=== PATIENT | female | born 1980 | race Caucasian/White ===

== ENCOUNTER 2017-10-10 19:56 | Emergency (ER) | payer MEDICAID ==
[~2017-10-10] VITALS: Ht 170.2 cm; Wt 105.0 kg
[2017-10-10] MEDS ORDERED: ONDANSETRON HCL 4MG/2ML VIAL IV STA (21:50)
[2017-10-10 21:55] LABS: CLARITY URINE CLEAR (CLEAR); COLOR URINE YELLOW (YELLOW); KETONES URINE NEGATIVE (NEGATIVE); LEUKOCYTE ESTERASE URINE NEGATIVE (NEGATIVE); NITRITE URINE NEGATIVE (NEGATIVE); OCCULT BLOOD URINE 2+ (NEGATIVE); PH URINE 6.5 (4.5-8.0); PROTEIN URINE NEGATIVE (NEGATIVE); SPECIFIC GRAVITY URINE 1.027 (1.005-1.030)
[2017-10-10] MEDS ORDERED: METHOCARBAMOL 500MG TABLET PO ONE (22:45)
[2017-10-10] MEDS ORDERED: KETOROLAC 30MG/ML VIAL IM ONE (22:45)
[2017-10-10 22:52] LABS: BASOPHILS % 0.2 % (0.0-2.0); EOSINOPHILS % 2.9 % (0.0-5.0); HEMATOCRIT. 38.7 % (36.0-48.0); HEMOGLOBIN. 12.7 g/dL (12.0-16.0); LYMPHOCYTES % 37.8 % (20.0-50.0); MEAN CORPUSCULAR HEMOGLOBIN 28.9 pg (28.0-32.0); MEAN CORPUSCULAR VOLUME 87.8 fL (81.0-99.0); MEAN PLATELET VOLUME 9.2 fl (7.4-10.4); NEUTROPHILS % 51.1 % (40.0-76.0); PLATELET 241 x1000/uL (130-400); RED BLOOD CELL COUNT 4.41 mill/uL (4.2-5.4); RED CELL DISTRIBUTION WIDTH 13.9 % (11.6-14.6)
[2017-10-10 22:57] LABS: CHLORIDE 109 mEq/L (98-107)
[2017-10-10 23:00] LABS: INR 1.1; PROTHROMBIN TIME 11.2 sec (9.4-11.6)
[2017-10-10 23:01] LABS: ETHANOL BLOOD < 10 mg/dL
[2017-10-11 00:50] VITALS: BP 129/75
== END 2017-10-11 00:58 | disposition home or self-care (01) ==
LOC: ER 20:03
DX: M54.5 Low back pain (principal); Z90.710 Acquired absence of both cervix and uterus
CPT/HCPCS: 36415; 72100; 80053; 81003; 81025; 83690; 85025; 85610; 96372; 99285; G0482; J1885

== ENCOUNTER 2017-10-13 09:16 | Emergency (ER) | payer MEDICAID ==
[~2017-10-13] VITALS: Ht 160 cm; Wt 110.2 kg
[2017-10-13] MEDS ORDERED: DEXAMETHASONE 10 MG/ML VIAL IM ONE (11:00)
[2017-10-13] MEDS ORDERED: KETOROLAC 60MG/2ML VIAL IM ONE (11:00)
[2017-10-13 11:23] VITALS: BP 120/68
== END 2017-10-13 12:04 | disposition home or self-care (01) ==
LOC: ER 09:33
DX: M54.42 Lumbago with sciatica, left side (principal); M54.41 Lumbago with sciatica, right side
CPT/HCPCS: 96372; 99284; J1100; J1885

== ENCOUNTER 2018-05-19 10:34 | Emergency (ER) | payer MEDICAID ==
[~2018-05-19] VITALS: Ht 165.1 cm; Wt 94.0 kg
[2018-05-19] MEDS ORDERED: KETOROLAC 30MG/ML VIAL IM ONE (12:45)
[2018-05-19] MEDS ORDERED: CYCLOBENZAPRINE 10MG TABLET PO ONE (12:45)
[2018-05-19 12:52] LABS: CLARITY URINE CLOUDY (CLEAR); COLOR URINE YELLOW (YELLOW); KETONES URINE NEGATIVE (NEGATIVE); LEUKOCYTE ESTERASE URINE NEGATIVE (NEGATIVE); NITRITE URINE NEGATIVE (NEGATIVE); OCCULT BLOOD URINE NEGATIVE (NEGATIVE); PH URINE 6.5 (4.5-8.0); PROTEIN URINE NEGATIVE (NEGATIVE); UROBILINOGEN URINE 0.2 E.U./dL (0.2-1.0)
[2018-05-19 13:08] VITALS: BP 101/46
== END 2018-05-19 14:32 | disposition home or self-care (01) ==
LOC: ER 10:34
DX: M54.5 Low back pain (principal); E11.9 Type 2 diabetes mellitus without complications; E03.9 Hypothyroidism, unspecified; Z98.890 Other specified postprocedural states
CPT/HCPCS: 72100; 81003; 81025; 96372; 99284; J1885

== ENCOUNTER 2019-11-11 10:38 | Emergency (ER) | payer MEDICAID ==
[~2019-11-11] VITALS: Ht 160 cm; Wt 102.0 kg
[2019-11-11] MEDS ORDERED: KETOROLAC 60MG/2ML VIAL IM ONE (11:30)
[2019-11-11 12:39] VITALS: BP 122/70
== END 2019-11-11 11:48 | disposition home or self-care (01) ==
LOC: ER 10:38
DX: U07.1 COVID-19 (principal); M54.9 Dorsalgia, unspecified; B34.9 Viral infection, unspecified; M54.16 Radiculopathy, lumbar region
CPT/HCPCS: 87635; 96372; 99283; C9803; J1885

== ENCOUNTER 2020-07-23 09:44 | Emergency (ER) | payer MEDICAID ==
[~2020-07-23] VITALS: Ht 165.1 cm; Wt 109.0 kg
[2020-07-23] MEDS ORDERED: KETOROLAC 30MG/ML VIAL IM ONE (10:15)
[2020-07-23 10:56] LABS: CHLORIDE 106 mEq/L (98-107)
[2020-07-23 10:59] LABS: CLARITY URINE CLEAR (CLEAR); COLOR URINE YELLOW (YELLOW); KETONES URINE NEGATIVE (NEGATIVE); LEUKOCYTE ESTERASE URINE NEGATIVE (NEGATIVE); NITRITE URINE NEGATIVE (NEGATIVE); OCCULT BLOOD URINE NEGATIVE (NEGATIVE); PROTEIN URINE NEGATIVE (NEGATIVE); SPECIFIC GRAVITY URINE 1.015 (1.005-1.030); UROBILINOGEN URINE 0.2 E.U./dL (0.2-1.0)
[2020-07-23] MEDS ORDERED: NAPR-420 MT (11:31)
[2020-07-23 11:43] VITALS: BP 119/68
== END 2020-07-23 11:44 | disposition home or self-care (01) ==
LOC: ER 10:00
DX: M54.5 Low back pain (principal); R10.9 Unspecified abdominal pain; Z98.890 Other specified postprocedural states
CPT/HCPCS: 36415; 74176; 80048; 81003; 81025; 96372; 99284; J1885

== ENCOUNTER 2020-11-05 16:56 | Emergency (ER) | payer MEDICAID ==
[~2020-11-05] VITALS: Ht 165.1 cm; Wt 105.0 kg
[~2020-11-05 16:56] MED LIST: NAPR-420 MT
[2020-11-05 18:47] LABS: CLARITY URINE CLEAR (CLEAR); COLOR URINE YELLOW (YELLOW); KETONES URINE TRACE (NEGATIVE); LEUKOCYTE ESTERASE URINE NEGATIVE (NEGATIVE); NITRITE URINE NEGATIVE (NEGATIVE); OCCULT BLOOD URINE 3+ (NEGATIVE); PH URINE 5.5 (4.5-8.0); PROTEIN URINE TRACE (NEGATIVE); SPECIFIC GRAVITY URINE 1.022 (1.005-1.030)
[2020-11-05 18:48] LABS: BASOPHILS % 0.5 % (0.0-2.0); EOSINOPHILS % 2.1 % (0.0-5.0); HEMATOCRIT. 35.3 % (36.0-48.0); HEMOGLOBIN. 12.2 g/dL (12.0-16.0); LYMPHOCYTES % 34.8 % (20.0-50.0); MEAN CORPUSCULAR HEMOGLOBIN 29.2 pg (28.0-32.0); MEAN CORPUSCULAR VOLUME 84.7 fL (81.0-99.0); MONOCYTES % 8.5 % (2.0-8.0); NEUTROPHILS % 54.1 % (40.0-76.0); PLATELET 230 x1000/uL (130-400); RED BLOOD CELL COUNT 4.17 mill/uL (4.2-5.4); RED CELL DISTRIBUTION WIDTH 14.2 % (11.6-14.6)
[2020-11-05 18:55] LABS: CHLORIDE 109 mEq/L (98-107)
[2020-11-05 19:13] LABS: B-HCG QUANTITATIVE < 1 mIU/mL (<3)
[2020-11-05 22:39] VITALS: BP 138/72
== END 2020-11-05 22:51 | disposition home or self-care (01) ==
LOC: ER 16:56
DX: N93.9 Abnormal uterine and vaginal bleeding, unspecified (principal); Z98.890 Other specified postprocedural states; Z90.710 Acquired absence of both cervix and uterus
CPT/HCPCS: 36415; 76830; 76856; 80053; 81003; 81025; 84702; 85025; 86850; 86900; 99284

== ENCOUNTER 2020-12-06 16:29 | Emergency (ER) | payer MEDICAID ==
[~2020-12-06] VITALS: Ht 162.6 cm; Wt 107.0 kg
[2020-12-06] MEDS ORDERED: ONDANSETRON HCL 4MG/2ML INJ IV STA (17:47)
[2020-12-06] MEDS ORDERED: SODIUM CHLORIDE 0.9% 1,000 ML IV ONE (18:00)
[2020-12-06 20:20] LABS: BASOPHILS % 0.2 % (0.0-2.0); HEMATOCRIT. 36.6 % (36.0-48.0); HEMOGLOBIN. 12.7 g/dL (12.0-16.0); MEAN CORPUSCULAR HEMOGLOBIN 29.2 pg (28.0-32.0); MEAN CORPUSCULAR VOLUME 84.1 fL (81.0-99.0); MEAN PLATELET VOLUME 9.2 fl (7.4-10.4); MONOCYTES % 3.7 % (2.0-8.0); NEUTROPHILS % 87.1 % (40.0-76.0); PLATELET 236 x1000/uL (130-400); RED BLOOD CELL COUNT 4.35 mill/uL (4.2-5.4); RED CELL DISTRIBUTION WIDTH 14.1 % (11.6-14.6)
[2020-12-06 20:27] LABS: CHLORIDE 110 mEq/L (98-107)
[2020-12-06 21:50] LABS: CLARITY URINE CLEAR (CLEAR); COLOR URINE YELLOW (YELLOW); KETONES URINE TRACE (NEGATIVE); LEUKOCYTE ESTERASE URINE NEGATIVE (NEGATIVE); NITRITE URINE NEGATIVE (NEGATIVE); OCCULT BLOOD URINE 2+ (NEGATIVE); PH URINE 6.5 (4.5-8.0); PROTEIN URINE 1+ (NEGATIVE); SPECIFIC GRAVITY URINE 1.031 (1.005-1.030); UROBILINOGEN URINE 0.2 E.U./dL (0.2-1.0)
[2020-12-06] MEDS ORDERED: ONDA4TAB5 MT (22:26)
[2020-12-06 22:47] VITALS: BP 125/60
== END 2020-12-06 22:50 | disposition home or self-care (01) ==
LOC: ER 16:29
DX: R11.2 Nausea with vomiting, unspecified (principal); R51.9 Headache, unspecified; R42 Dizziness and giddiness; Z98.890 Other specified postprocedural states; Z90.710 Acquired absence of both cervix and uterus
CPT/HCPCS: 36415; 80053; 81003; 81025; 85025; 93005; 96361; 96374; 99284; J2405; J7030; 96360

== ENCOUNTER 2021-09-26 16:27 | Emergency (ER) | payer MEDICAID, OTHER ==
[~2021-09-26] VITALS: Ht 160 cm; Wt 125.0 kg
[~2021-09-26 16:27] MED LIST changes: +ONDA4TAB5 MT
[2021-09-26 18:22] LABS: BASOPHILS % 0.3 % (0.0-2.0); EOSINOPHILS % 0.9 % (0.0-5.0); HEMATOCRIT. 38.9 % (36.0-48.0); HEMOGLOBIN. 13.5 g/dL (12.0-16.0); LYMPHOCYTES % 30.5 % (20.0-50.0); MEAN CORPUSCULAR HEMOGLOBIN 28.4 pg (28.0-32.0); MEAN PLATELET VOLUME 9.4 fl (7.4-10.4); NEUTROPHILS % 62.3 % (40.0-76.0); PLATELET 259 x1000/uL (130-400); RED BLOOD CELL COUNT 4.74 mill/uL (4.2-5.4); RED CELL DISTRIBUTION WIDTH 15.6 % (11.6-14.6)
[2021-09-26 18:33] LABS: CHLORIDE 106 mEq/L (98-107)
[2021-09-26 18:55] LABS: HCG SCREEN NEGATIVE
[2021-09-26] MEDS ORDERED: KETOROLAC 30MG/ML VIAL IV ONE (19:45)
[2021-09-26] MEDS ORDERED: LORAZEPAM 2MG/ML CPJ IV ONE (20:30)
[2021-09-26 21:20] VITALS: BP 129/61
== END 2021-09-26 21:43 | disposition home or self-care (01) ==
LOC: ER 16:27
DX: R06.02 Shortness of breath (principal); Z20.822 Contact with and (suspected) exposure to COVID-19
CPT/HCPCS: 36415; 71045; 71275; 80053; 81025; 83880; 84484; 84703; 85025; 85379; 87426; 93005; 96374; 96375; 99285; J1885; J2060

== ENCOUNTER 2022-06-05 16:44 | Emergency (ER) | payer MEDICAID, OTHER ==
[~2022-06-05] VITALS: Ht 160 cm; Wt 123.0 kg
[2022-06-05 18:12] VITALS: BP 128/69
[2022-06-05 19:37] LABS: BASOPHILS % 0.3 % (0.0-2.0); EOSINOPHILS % 1.4 % (0.0-5.0); HEMATOCRIT. 32.8 % (36.0-48.0); HEMOGLOBIN. 10.9 g/dL (12.0-16.0); LYMPHOCYTES % 36.9 % (20.0-50.0); MEAN CORPUSCULAR HEMOGLOBIN 28.1 pg (28.0-32.0); MEAN CORPUSCULAR VOLUME 84.4 fL (81.0-99.0); MEAN PLATELET VOLUME 9.7 fl (7.4-10.4); NEUTROPHILS % 54.4 % (40.0-76.0); PLATELET 250 x1000/uL (130-400); RED BLOOD CELL COUNT 3.88 mill/uL (4.2-5.4); RED CELL DISTRIBUTION WIDTH 14.1 % (11.6-14.6)
[2022-06-05 19:44] LABS: CHLORIDE 106 mEq/L (98-107)
[2022-06-05 19:47] LABS: HCG SCREEN NEGATIVE
== END 2022-06-05 21:58 | disposition home or self-care (01) ==
LOC: ER 16:44
DX: N93.8 Other specified abnormal uterine and vaginal bleeding (principal); D64.9 Anemia, unspecified; Z98.890 Other specified postprocedural states
CPT/HCPCS: 36415; 76830; 76856; 80053; 81025; 84703; 85025; 99284

== ENCOUNTER 2024-02-11 17:14 | Emergency (ER) | payer MEDICAID, OTHER ==
[~2024-02-11] VITALS: Ht 165.1 cm; Wt 91.0 kg
[2024-02-11 17:26] VITALS: O2SAT 100
[2024-02-11 18:16] LABS: BASOPHILS % 0.2 % (0.0-2.0); EOSINOPHILS % 1.1 % (0.0-5.0); HEMATOCRIT. 28.2 % (36.0-48.0); HEMOGLOBIN. 8.6 g/dL (12.0-16.0); LYMPHOCYTES % 34.3 % (20.0-50.0); MEAN CORPUSCULAR HEMOGLOBIN 20.8 pg (28.0-32.0); MEAN CORPUSCULAR HGB CONC 30.5 g/dL (31.0-37.0); MEAN CORPUSCULAR VOLUME 68.3 fL (81.0-99.0); MEAN PLATELET VOLUME 8.8 fl (7.4-10.4); MONOCYTES % 7.4 % (2.0-8.0); PLATELET 232 x1000/uL (130-400); RED BLOOD CELL COUNT 4.13 mill/uL (4.2-5.4); WHITE BLOOD COUNT 7.9 x1000/uL (4.5-11.0)
[2024-02-11 18:24] LABS: ADD RBC MORPHOLOGY YES; DIFFERENTIAL COMMENT 1
[2024-02-11 18:26] LABS: CHLORIDE 109 mEq/L (98-107); POTASSIUM 3.9 mEq/L (3.5-5.1); SODIUM 140 mEq/L (136-145)
[2024-02-11 18:27] LABS: CALCIUM 9.3 mg/dL (8.7-10.4); CARBON DIOXIDE 25 mEq/L (21-32)
[2024-02-11 18:32] LABS: CREATININE 0.6 mg/dL (0.6-1.0); GLUCOSE 90 mg/dL (70-105); UREA NITROGEN BLOOD 12 mg/dL (9-23)
[2024-02-11 18:34] LABS: ALANINE AMINOTRANSFERASE 11 IU/L (10-49); ALBUMIN 4.4 g/dL (3.2-4.8); ASPARTATE AMINOTRANSFERASE 19 IU/L (<34); BILIRUBIN TOTAL 0.2 mg/dL (0.1-1.0); PROTEIN TOTAL 7.2 g/dL (6.0-8.3)
[2024-02-11 18:37] LABS: TROPONIN I HIGH SENSITIVITY < 4 ng/L (3.0-34)
[2024-02-11 19:30] VITALS: BP 133/68; PULSE 71; RESP 16; TEMP 36.61404; O2SAT 100
[2024-02-11] MEDS ORDERED: FERR236T3 MT (19:39)
[2024-02-11 19:49] LABS: HYPOCHROMASIA 2+; MICROCYTOSIS 3+; PLATELET ESTIMATE NORMAL
[2024-02-11 19:50] LABS: ANISOCYTOSIS 1+
== END 2024-02-11 19:45 | disposition home or self-care (01) ==
LOC: ER 17:14
DX: R07.9 Chest pain, unspecified (principal); D64.9 Anemia, unspecified; Z98.890 Other specified postprocedural states
CPT/HCPCS: 36415; 71045; 80053; 84484; 85025; 93005; 99285

== ENCOUNTER 2024-02-13 01:02 | Emergency (ER) | payer OTHER ==
[~2024-02-13] VITALS: Ht 165.1 cm; Wt 84.0 kg
[~2024-02-13 01:02] MED LIST changes: +FERR236T3 MT
[2024-02-13 01:07] VITALS: O2SAT 100
[2024-02-13 01:41] VITALS: TEMP 36.72516
[2024-02-13 02:11] LABS: BASOPHILS % 0.4 % (0.0-2.0); EOSINOPHILS % 1.1 % (0.0-5.0); HEMATOCRIT. 28.2 % (36.0-48.0); HEMOGLOBIN. 8.7 g/dL (12.0-16.0); LYMPHOCYTES % 26.4 % (20.0-50.0); MEAN CORPUSCULAR HEMOGLOBIN 20.9 pg (28.0-32.0); MEAN CORPUSCULAR VOLUME 67.6 fL (81.0-99.0); MEAN PLATELET VOLUME 9.7 fl (7.4-10.4); MONOCYTES % 6.9 % (2.0-8.0); NEUTROPHILS % 65.2 % (40.0-76.0); PLATELET 235 x1000/uL (130-400); RED BLOOD CELL COUNT 4.17 mill/uL (4.2-5.4); RED CELL DISTRIBUTION WIDTH 16.5 % (11.6-14.6); WHITE BLOOD COUNT 9.7 x1000/uL (4.5-11.0)
[2024-02-13 02:23] LABS: DIFFERENTIAL COMMENT 1
[2024-02-13 02:28] LABS: CARBON DIOXIDE 22 mEq/L (21-32); CHLORIDE 110 mEq/L (98-107); POTASSIUM 3.2 mEq/L (3.5-5.1); SODIUM 141 mEq/L (136-145)
[2024-02-13 02:29] LABS: CALCIUM 9.2 mg/dL (8.7-10.4)
[2024-02-13 02:33] LABS: CREATININE 0.7 mg/dL (0.6-1.0); GLUCOSE 91 mg/dL (70-105)
[2024-02-13 02:34] LABS: UREA NITROGEN BLOOD 11 mg/dL (9-23)
[2024-02-13 02:38] LABS: TROPONIN I HIGH SENSITIVITY < 4 ng/L (3.0-34)
[2024-02-13 03:44] LABS: HCG SCREEN NEGATIVE
[2024-02-13] MEDS ORDERED: IOHEXOL-350 100 ML BOTTLE ONE (04:01)
[2024-02-13] MEDS ORDERED: FERR324T4 MT (04:53)
[2024-02-13 06:04] VITALS: BP 96/53; PULSE 68; RESP 20; O2SAT 99
== END 2024-02-13 06:18 | disposition home or self-care (01) ==
LOC: ER 01:02 → EDUNIT# 01:02 → EDBEDREQ 02:39 → ER 06:18
DX: R06.02 Shortness of breath (principal); D64.9 Anemia, unspecified; Z79.899 Other long term (current) drug therapy; Z20.822 Contact with and (suspected) exposure to COVID-19
CPT/HCPCS: 80048; 84703; 83880; 85025; 85379; 84484; 36415; 71045; 71275; 93970; 93005; 99285; 87426; Q9967; Z7610 ×3